=== PATIENT | male | born 1985 | race Caucasian/White ===

== ENCOUNTER 2024-04-15 10:57 | Outpatient (OUT) | payer BC, SELFPAY ==
--- NOTE | 2024-04-15 11:10 | US_ITS ---
The [address] [address] Patient Name: MATTHEW SLADE MRN: [id number] date: 1985 Sex: M Assigned Patient Location: [place] Current Patient Location: US Accession/Order Number: [id number] Exam Date: 04/15/2024 11:15 Report Date: 04/15/2024 13:33 At the request of: VANGIE BUENO Procedure: US renal BI EXAMINATION: US renal BI HISTORY: Kidney Stone COMPARISON: No relevant comparison available. TECHNIQUE: Ultrasound examination was performed of the kidneys and urinary bladder. FINDINGS: RIGHT KIDNEY: No evidence of pelvocaliectasis, mass, or calculi. Normal parenchymal echogenicity. Color Doppler demonstrates blood flow within the kidney. Kidney: 10.2 x 6.6 x 6.1 cm LEFT KIDNEY: No evidence of pelvocaliectasis, mass, or calculi. Normal parenchymal echogenicity. Color Doppler demonstrates blood flow within the kidney. Kidney: 10.5 x 5.3 x 5.5 cm BLADDER: No visible wall thickening, mass, or calculi. US/US renal BI IMPRESSION: 1. No appreciable urinary tract calculi or obstructive uropathy. Electronically authenticated by: CARLYLE STEPHENS Date: 04/15/2024 13:33
== END 2024-04-15 10:58 | disposition home or self-care (01) ==
PROVIDERS: PCP Family Medicine; Visit Provider Student in an Organized Health Care Education/Training Program
DX: N20.0 Calculus of kidney (principal)
CPT/HCPCS: 76775